=== PATIENT | female | born 1980 | race Caucasian/White ===

== ENCOUNTER → 2018-08-08 | Outpatient (CLI) | payer BC ==
--- NOTE | 2018-08-09 08:41 | RADIOLOGY IMAGING REPORT ---
FACILITY: [facility] PATIENT NAME: ELIEL NARAYANAN : [id number] MR: [id number] V: [id number] EXAM DATE: ORDERING PHYSICIAN: KISHA LEMON TECHNOLOGIST: Donita Olvera PROCEDURE:BILATERAL DIGITAL SCREENING MAMMOGRAM WITH CAD ASSISTED INTERPRETATION & 3D TOMOSYNTHESIS COMPARISON:None this is the patient's baseline mammogram. INDICATIONS:SCREENING FINDINGS: The breasts are heterogeneously dense which can obscure small masses. There is a small asymmetry in the upper portion of the Left breast posterior 1/3 on the Left MLO view for which Spot compression view is recommended. DIAGNOSTIC CATEGORY 0--INCOMPLETE: NEED ADDITIONAL IMAGING EVALUATION. RECOMMENDATIONS: ADDITIONAL MAMMOGRAPHIC VIEWS REQUIRED: LEFT BREAST. IMPRESSION: BIRADS 0: Incomplete. Additional view of the Left breast is recommended as described. Dictated by: Xena Snyder M.D. on 08/08/2018 at 16:06 Transcribed by: TORY on 08/08/2018 at 16:16 Approved by: Xena Snyder M.D. on 08/09/2018 at 8:40 [facility]
== END ==
LOC: MAMO 13:34
PROVIDERS: ATTEND Physician Assistant
DX: Z12.31 Encounter for screening mammogram for malignant neoplasm of breast (principal); R92.8 Other abnormal and inconclusive findings on diagnostic imaging of breast
CPT/HCPCS: 77063; 77067

== ENCOUNTER → 2018-10-30 | Outpatient (CLI) | payer BC ==
--- NOTE | 2018-11-01 08:20 | RADIOLOGY IMAGING REPORT ---
[place] [facility] [place] NAME: ELIEL NARAYANAN : [id number] MR: [id number] V: [id number] EXAM DATE: [id number] ORDERING PHYSICIAN: KISHA LEMON TECHNOLOGIST: Debbie Alba PROCEDURE:LEFT DIGITAL MAMMOGRAM DIAGNOSTIC WITH CAD ASSISTED INTERPRETATION & 3D TOMOSYNTHESIS REASON FOR STUDY: Further evaluation FAMILY HISTORY OF BREAST CANCER: None BREAST PROCEDURES/TREATMENTS: None COMPARISON STUDIES: 08/08/18 MAMMOGRAM VIEWS OBTAINED: 2D & 3D spot compression views Left MLO BREAST DENSITY: The breasts are heterogeneously dense which can obscure small masses. MAMMOGRAM FINDINGS: The small asymmetry in the upper portion Left breast in the posterior third on the recent Left MLO view was compressible & apparently represents summation shadow. BIRADS 2: Benign findings. IMPRESSION: BIRADS 2: Benign finding. Dictated by: Xena Snyder M.D. on 10/30/2018 at 17:43 Transcribed by: MONIKA on 10/31/2018 at 7:34 Approved by: Xena Snyder M.D. on 11/01/2018 at 8:18 [facility]
== END ==
LOC: MAMO 07:18
PROVIDERS: ATTEND Physician Assistant
DX: R92.8 Other abnormal and inconclusive findings on diagnostic imaging of breast (principal)
CPT/HCPCS: 77061; 77065